=== PATIENT | female | born 2005 | race Caucasian/White ===

== ENCOUNTER 2023-07-01 16:22 | Emergency (ER) | payer SELFPAY ==
[~2023-07-01] VITALS: Ht 160 cm; Wt 68.0 kg
[2023-07-01 16:33] VITALS: O2SAT 99
[2023-07-01] MEDS: TETANUS, DIPHTHERIA, PERTUSSIS VAC/PF 0.5ML (>10YR OLD) IM ONE (19:14)
[2023-07-01] MEDS: BACITRACIN ZINC OINT UDPKT TOP ONE ×2 (19:15→23:05)
[2023-07-01] MEDS: ACETAMINOPHEN 325MG TABLET PO ONE (19:15)
[2023-07-01] MEDS ORDERED: NAPR220C61 MT (22:04)
[2023-07-01] MEDS ORDERED: ACET-2708 MT (22:04)
[2023-07-01 22:36] VITALS: BP 106/66; PULSE 84; RESP 18; TEMP 98.6
== END 2023-07-01 22:45 | disposition home or self-care (01) ==
LOC: ER 16:22
DX: S51.012A Laceration without foreign body of left elbow, initial encounter (principal); S81.011A Laceration without foreign body, right knee, initial encounter; S09.90XA Unspecified injury of head, initial encounter; G89.11 Acute pain due to trauma; Y08.89XA Assault by other specified means, initial encounter; Y93.89 Activity, other specified; Y92.89 Other specified places as the place of occurrence of the external cause; Y99.8 Other external cause status
CPT/HCPCS: 81025; 73070; 70450; 70486; 90715; 90471; 99285; Z7610 ×2